=== PATIENT | female | born 1995 | race Caucasian/White ===

== ENCOUNTER 2024-07-05 09:45 | Inpatient (IN) | payer OTHER ==
[2024-07-05] MEDS ORDERED: ACETAMINOPHEN 650MG/RECT SUPP PR ONE (10:42)
[2024-07-05] MEDS ORDERED: CEFTRIAXONE 1000 MG/VIAL ONE (10:42)
[2024-07-05] MEDS ORDERED: NA CHLORIDE 0.9% 500 ML ONE (10:43)
[2024-07-05] MEDS ORDERED: NA CHLORIDE 0.9% 1,000 ML ONE (10:43)
[2024-07-05] MEDS ORDERED: AZITHROMYCIN 500 MG INJ IVPB ONE (10:43)
[2024-07-05 10:45] LABS: Absolute Lymphocytes (CBC) 0.4 K/uL (0.7-4.9); Absolute Monocytes 0.5 K/uL (0.1-1.3); Basophils % 0.2 % (0-1.3); Hemoglobin 14.8 g/dL (12.0-15.0); Lymphocytes % 6.1 % (15.3-44.8); MCHC 33.6 g/dL (32.0-36.0); MCV 95.4 fL (80-100); Monocytes % 7.3 % (3.3-12.3); Neutrophils % 86.4 % (41.7-73.7); Nucleated Red Blood Cells % 0.1 % (0-0); Platelets 192 thou/uL (152-406); RBC Red Blood Cell Count 4.61 M/uL (3.86-4.86); Red Cell Distribution Width 13.4 % (12.1-15.2)
[2024-07-05 10:59] LABS: Protime INR 1.26
[2024-07-05 11:04] LABS: Albumin 3.8 g/dL (3.4-5.0); Albumin/Globulin Ratio 0.8 (1.1-1.8); Anion Gap 5.4 mEq/L (5.0-15.0); Bilirubin Total 0.3 mg/dL (0.2-1.0); Globulin 4.5 g/dL (2.3-3.5); Potassium 3.4 mEq/L (3.5-5.1); Protein, Total 8.3 g/dL (6.4-8.2)
[2024-07-05 11:25] LABS: SARS-CoV-2 Antigen CONTROL BLUE LINE VIS/BG OK; SARS-CoV-2 Antigen Rapid Res Negative (Negative)
--- NOTE | 2024-07-05 11:30 | ER ---
Nurse's Notes [facility] Name: Zeinab Quiros Age: 29 yrs Sex: Female : 1995 Arrival Date: 07/05/2024 Time: 09:45 Bed 4 Private MD: Diagnosis: Sepsis, unspecified organism;Pneumonia, unspecified organism Presentation: 07/05 10:00 Chief complaint: Fever, decreased appetite, and cough x 4 days, diarrhea x 3 days. hb Coronavirus screen: At this time, the client does not indicate any symptoms associated with coronavirus-19. Ebola Screen: No symptoms or risks identified at this time. Initial Sepsis Screen: Does the patient meet any 2 criteria? RR > 20 per min. Temp <36.0*C (96.8*F)) or > 38.3*C (100.9*F). HR > 90 bpm. Yes Does the patient have a suspected source of infection? No. Patient's initial sepsis screen is negative. Risk Assessment: Do you want to hurt yourself or someone else? Patient reports no desire to harm self or others. Onset of symptoms was July 02, 2024. 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 N/A - , Not rg5 Historical: - Allergies: 10:17 No Known Allergies; hb - Home Meds: 10:17 Baclofen Oral [Active]; bisacodyl 5 mg Oral tablet 2 tabs 2 times per day [Active]; hb ducosate sodium [Active]; clonazepam 1 mg Oral tablet 2 times per day [Active]; trazodone 100 mg Oral tablet every day at bedtime [Active]; dantrolene 25 mg oral capsule 3 times per day [Active]; gabapentin 300 mg oral capsule 2 times per day [Active]; cetirizine 10 mg oral capsule daily [Active]; - PMHx: 10:17 Cerebral palsy; hb 11:00 constipation; muscle spasms; aa5 11:00 seizures as a child; aa5 14:30 IUD placement; aa5 - PSHx: 10:17 Bilateral Feet; hb - Immunization history:: Adult Immunizations up to date. - Infectious Disease History:: Denies. - Social history:: Smoking status: Patient denies any tobacco usage or history of. Screenin:30 [facility] ED Fall Risk Assessment (Adult) History of falling in the last 3 months, aa5 including since admission No falls in past 3 months (0 pts) Confusion or Disorientation Yes (5 pts) Intoxicated or Sedated No (0 pts) Impaired Gait Yes (1 pt) Mobility Assist Device Used Yes (1 pt) Altered Elimination Yes (1 pt) Score/Fall Risk Level 3 or more points = High Risk Oriented to surroundings, Maintained a safe environment, Educated pt \\T\\ family on fall prevention, incl call for assistance when getting out of bed, Hourly rounding (assess needs \\T\\ fall precautionary measures) done, Utilized family, sitter, or virtual financial services agent as indicated. Abuse screen: No signs of abuse noted. Nutritional screening: decreased appetite x 3 days ago . Tuberculosis screening: No symptoms or risk factors identified. Assessment: 10:30 General: Appears uncomfortable, Behavior is restless. Pain: Unable to use pain scale. aa5 Does not appear to understand pain scale. Neuro: Level of Consciousness is awake, unable to follow commands, pt is non-verbal. . Oriented to none. Cardiovascular: Heart tones S1 S2 present Capillary refill < 3 seconds in bilateral fingers Rhythm is sinus tachycardia. Respiratory: Airway is patent Respiratory effort is even, unlabored, Respiratory pattern is tachypnea Breath sounds are coarse bilaterally. Parent/caregiver reports the patient having cough x 3-4 days ago. GI: Abdomen is flat, non-distended, Bowel sounds present X 4 quads. Abd is soft X 4 quads Parent/caregiver reports the patient having diarrhea x 3 days and decreased appetite. : Brief noted. EENT: No signs and/or symptoms were reported regarding the EENT system. Derm: Skin is dry, Skin is normal, Skin temperature is hot. Musculoskeletal: Parent/caregiver report the patient having chronic muscle spasms. 11:08 Reassessment: No changes from previously documented assessment. aa5 11:52 Neuro: Level of Consciousness is awake, Oriented to none. Respiratory: Airway is patent aa5 Respiratory effort is even, unlabored, Respiratory pattern is tachypnea. Derm: Skin is dry, Skin is normal, Skin temperature is hot. 12:48 Neuro: Level of Consciousness is awake, Oriented to none. Respiratory: Airway is patent aa5 Respiratory effort is even, unlabored, Respiratory pattern is tachypnea. Derm: Skin is pink, warm \\T\\ dry. 12:50 Reassessment: Pt to CT scan . aa5 13:45 Neuro: Level of Consciousness is awake, Oriented to none. Respiratory: Airway is patent aa5 Respiratory effort is even, unlabored, Respiratory pattern is tachypnea. Derm: Skin is pink, warm \\T\\ dry. 19:10 Reassessment: Patient and/or family updated on plan of care and expected duration. Pain rg5 level reassessed. Vital Signs: 10:00 BP 126 / 81; Pulse 160; Resp 24; Temp 104.6(R); Pulse Ox 88% on R/A; Weight 39.46 kg; hb Height 5 ft. 3 in. ; Pain 4/10; 11:08 BP 124 / 86; Pulse 145; Resp 34 S; Pulse Ox 96% on 2 lpm NC; aa5 11:19 Pulse 137; ec2 11:52 Pulse 131; Resp 32 S; Temp 101.9(R); Pulse Ox 96% on 2 lpm NC; aa5 12:00 BP 112 / 88; Pulse 133; Resp 33 S; Pulse Ox 96% on 2 lpm NC; aa5 12:48 BP 128 / 93; Pulse 132; Resp 28 S; Temp 101.1(R); Pulse Ox 95% on 2 lpm NC; aa5 13:45 BP 112 / 82; Pulse 120; Resp 25 S; Pulse Ox 97% on 2 lpm NC; aa5 14:06 Pulse 123; ec2 14:28 Pulse 123; Resp 22 S; Temp 98.6(O); Pulse Ox 95% on 2 lpm NC; aa5 16:12 BP 115 / 91; Pulse 113; Resp 20 S; Pulse Ox 97% on 2 lpm NC; aa5 19:00 BP 105 / 93; Pulse 99; Resp 19; Temp 98.4; Pulse Ox 99% on R/A; Pain 0/10; rg5 10:00 Body Mass Index 15.41 (39.46 kg, 160.02 cm) hb 10:00 Pain Scale: Non-Verbal hb 19:00 Pain Scale: Adult rg5 ED Course: 09:49 Patient arrived in ED. mr 09:50 Austen Orta MD is Attending Physician. ec2 10:12 Terrence Wilson, RN is Primary Nurse. bp 10:17 Triage completed. hb 10:20 Arm band placed on. hb 10:30 Patient has correct armband on for positive identification. Placed in gown. Bed in low aa5 position. Call light in reach. Side rails up X2. Adult w/ patient. Client placed on continuous cardiac and pulse oximetry monitoring. NIBP monitoring applied. propeller engineer on. Pulse ox on. NIBP on. 10:35 Initial lab(s) drawn, by me, sent to lab. First set of blood cultures drawn by me. aa5 10:40 Inserted saline lock: 20 gauge in right antecubital area, using aseptic technique. aa5 Flushed with 10 mL NS. 10:45 EKG was attempted but very poor reading due to pt moving, pt's mother states "she never aa5 stops moving ,she even moves when she sleeps". stated to cancel EKG. 11:02 Second set of blood cultures drawn by me. aa5 11:14 Chest Single View XRAY In Process Unspecified. EDMS 11:[address] MD is Hospitalizing Provider. ec2 12:45 Straight cath inserted, using sterile technique, 14 Fr. Specimen obtained. Patient aa5 tolerated well. 13:15 Repeat lab(s) drawn. by me, sent to lab. aa5 13:16 Chest Abdomen Pelvis W Con CT In Process Unspecified. EDMS 14:30 No provider procedures requiring assistance completed. Patient admitted, IV remains in aa5 place. 19:00 Provided Education on: NEED FOR ADMIT. rg5 19:10 Resting quietly. rg5 Administered Medications: 10:42 Drug: NS 0.9% IV 1500 ml IV at 1 bolus Per protocol; 1000 mL bolus Route: IV; Rate: 1 aa5 bolus; Site: right antecubital; 12:08 Follow up: IV Status: Completed infusion; IV Intake: 1500ml aa5 11:00 Drug: Acetaminophen MO Suppository 650 mg MO once Route: MO; aa5 12:48 Follow up: Response: No adverse reaction; Temperature is decreased aa5 11:03 Drug: Rocephin IV 1 grams IV at calculated rate once; Given slow IV push per pharmacy aa5 instructions Route: IV; Rate: calculated rate; Site: right antecubital; 11:06 Follow up: Response: No adverse reaction; IV Status: Completed infusion aa5 11:08 Drug: AZITHromycin IVPB 500 mg IVPB once over 1 hrs; (mix in 250 mL NS) Route: IVPB; aa5 Infused Over: 1 hrs; Site: right antecubital; 12:08 Follow up: Response: No adverse reaction; IV Status: Completed infusion aa5 12:49 Drug: Ativan IVP 0.5 mg IVP once Route: IVP; Site: right antecubital; aa5 12:50 Follow up: Response: No adverse reaction aa5 Medication: 13:19 VIS not applicable for this client. aa5 Intake: 12:08 IV: 1500ml; Total: 1500ml. aa5 Outcome: 11:28 Decision to Hospitalize by Provider. ec2 14:30 Admitted to ER Hold. Please see [facility] for further documentation. aa5 14:30 Condition: stable aa5 14:30 Instructed on the need for admit, given to mother 19:35 Patient left the ED. rg5 Signatures: Dispatcher [employer] EDNM Ninoska Anne, Reg Reg Deonna Poon, RN RN aa5 Maria Luisa Osullivan RN RN hb Peltier, Brian, RN RN bp Austen Orta MD MD ec2 Barry De Leon, BETSY RN rg5 Corrections: (The following items were deleted from the chart) 11:19 11:00 PMHx: seizures a child; aa5 aa5 13:20 11:08 Pulse 145bpm; Resp 34bpm; Spontaneous; Pulse Ox 96% 2 lpm Nasal Cannula; aa5 aa5
--- NOTE | 2024-07-05 11:30 | EDPHYS ---
Physician Documentation [facility] Name: Zeinab Quiros Age: 29 yrs Sex: Female : 1995 Arrival Date: 07/05/2024 Time: 09:45 Bed 4 Private MD: ED Physician Austen Orta HPI: 07/05 10:18 This 29 yrs old Female presents to ER via Wheelchair with complaints of ec2 Fever, Congestion, Low O2. 10:18 History gathered from caregivers, patient arrives today due to concern for cough and ec2 congestion as well as fevers. Patient with history of cerebral palsy, limited communication.. 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 - , Not rg5 Historical: - Allergies: 10:17 No Known Allergies; hb - Home Meds: 10:17 Baclofen Oral [Active]; bisacodyl 5 mg Oral tablet 2 tabs 2 times per day [Active]; hb ducosate sodium [Active]; clonazepam 1 mg Oral tablet 2 times per day [Active]; trazodone 100 mg Oral tablet every day at bedtime [Active]; dantrolene 25 mg oral capsule 3 times per day [Active]; gabapentin 300 mg oral capsule 2 times per day [Active]; cetirizine 10 mg oral capsule daily [Active]; - PMHx: 10:17 Cerebral palsy; hb 11:00 constipation; muscle spasms; aa5 11:00 seizures as a child; aa5 14:30 IUD placement; aa5 - PSHx: 10:17 Bilateral Feet; hb - Immunization history:: Adult Immunizations up to date. - Infectious Disease History:: Denies. - Social history:: Smoking status: Patient denies any tobacco usage or history of. ROS: 10:18 Constitutional: as per hpi ec2 Exam: 10:18 Constitutional: GEN: NAD Head: atraumatic Ears: External ears are normal. CV: ec2 Tachycardia LUNGS: Scattered rhonchi, tachypnea ABD: non-distended SKIN: no evidence of rashes Vital Signs: 10:00 BP 126 / 81; Pulse 160; Resp 24; Temp 104.6(R); Pulse Ox 88% on R/A; Weight 39.46 kg; hb Height 5 ft. 3 in. ; Pain 4/10; 11:08 BP 124 / 86; Pulse 145; Resp 34 S; Pulse Ox 96% on 2 lpm NC; aa5 11:19 Pulse 137; ec2 11:52 Pulse 131; Resp 32 S; Temp 101.9(R); Pulse Ox 96% on 2 lpm NC; aa5 12:00 BP 112 / 88; Pulse 133; Resp 33 S; Pulse Ox 96% on 2 lpm NC; aa5 12:48 BP 128 / 93; Pulse 132; Resp 28 S; Temp 101.1(R); Pulse Ox 95% on 2 lpm NC; aa5 13:45 BP 112 / 82; Pulse 120; Resp 25 S; Pulse Ox 97% on 2 lpm NC; aa5 14:06 Pulse 123; ec2 14:28 Pulse 123; Resp 22 S; Temp 98.6(O); Pulse Ox 95% on 2 lpm NC; aa5 16:12 BP 115 / 91; Pulse 113; Resp 20 S; Pulse Ox 97% on 2 lpm NC; aa5 19:00 BP 105 / 93; Pulse 99; Resp 19; Temp 98.4; Pulse Ox 99% on R/A; Pain 0/10; rg5 10:00 Body Mass Index 15.41 (39.46 kg, 160.02 cm) hb 10:00 Pain Scale: Non-Verbal hb 19:00 Pain Scale: Adult rg5 MDM: 09:52 Patient medically screened. ec2 10:18 Data reviewed: vital signs. ED course: Patient arrives today for evaluation of fever ec2 and cough. Examination remarkable for objectively febrile individual was otherwise tachycardic, patient placed on oxygen with saturations at 88%. Will obtain septic workup, empirically treat for pulmonary pathology. Differential includes pneumonia, aspiration, community-acquired, viral infection, UTI. . 11:19 ED course: Patient with improving tachycardia and reassessment. Sepsis reassessment ec2 complete.. 11:28 ED course: Will admit patient for sepsis, pneumonia. Discussed case with hospitalist, nolan pending admission.. 07/05 10:18 Order name: Blood Culture Adult (2) ec2 07/05 10:18 Order name: CBC with Diff; Complete Time: 12:44 ec2 07/05 10:18 Order name: CMP; Complete Time: 11:19 ec2 07/05 10:18 Order name: Lactate w/ 2H reflex if indic.; Complete Time: 11:19 ec2 07/05 10:18 Order name: Protime (+inr); Complete Time: 11:19 ec2 07/05 10:18 Order name: Ptt, Activated; Complete Time: 11:19 ec2 07/05 10:18 Order name: SARS RAPID; Complete Time: 11:27 ec2 07/05 10:18 Order name: Influenza Screen (a \T\ B); Complete Time: 11:27 ec2 07/05 12:08 Order name: UAM; Complete Time: 13:13 la1 07/05 12:21 Order name: CBC Smear Scan; Complete Time: 12:44 EDMS 07/05 13:06 Order name: Ghost Lactate-NO COLLECT Timer; Complete Time: 13:07 EDMS 07/05 13:43 Order name: Lactate Sepsis 2 HR Follow-up; Complete Time: 13:47 EDMS 07/05 10:18 Order name: Chest Single View XRAY; Complete Time: 11:48 ec2 07/05 12:08 Order name: Chest Abdomen Pelvis W Con CT; Complete Time: 13:34 la1 07/05 10:18 Order name: EKG; Complete Time: 10:18 ec2 07/05 10:18 Order name: Cardiac monitoring; Complete Time: 10:38 ec2 07/05 10:18 Order name: EKG - Nurse/Tech; Complete Time: 10:38 ec2 07/05 10:18 Order name: IV Saline Lock - Large Bore; Complete Time: 10:38 ec2 07/05 10:18 Order name: Labs collected and sent; Complete Time: 10:38 ec2 07/05 10:18 Order name: O2 Per Protocol; Complete Time: 10:39 ec2 07/05 10:18 Order name: O2 Sat Monitoring; Complete Time: 10:39 ec2 07/05 10:18 Order name: Vital Signs; Complete Time: 10:39 ec2 07/05 12:03 Order name: Straight Cath; Complete Time: 12:52 la1 Administered Medications: 10:42 Drug: NS 0.9% IV 1500 ml IV at 1 bolus Per protocol; 1000 mL bolus Route: IV; Rate: 1 aa5 bolus; Site: right antecubital; 12:08 Follow up: IV Status: Completed infusion; IV Intake: 1500ml aa5 11:00 Drug: Acetaminophen [place] Suppository 650 mg NJ once Route: NJ; aa5 12:48 Follow up: Response: No adverse reaction; Temperature is decreased aa5 11:03 Drug: Rocephin IV 1 grams IV at calculated rate once; Given slow IV push per pharmacy aa5 instructions Route: IV; Rate: calculated rate; Site: right antecubital; 11:06 Follow up: Response: No adverse reaction; IV Status: Completed infusion aa5 11:08 Drug: AZITHromycin IVPB 500 mg IVPB once over 1 hrs; (mix in 250 mL NS) Route: IVPB; aa5 Infused Over: 1 hrs; Site: right antecubital; 12:08 Follow up: Response: No adverse reaction; IV Status: Completed infusion aa5 12:49 Drug: Ativan IVP 0.5 mg IVP once Route: IVP; Site: right antecubital; aa5 12:50 Follow up: Response: No adverse reaction aa5 Disposition Summary: 07/05/24 11:28 Hospitalization Ordered Notes: Hospitalization Status: Inpatient Admission ec2 Provider: Joseph Way ec2 Condition: Stable ec2 Problem: an acute exacerbation ec2 Symptoms: have improved ec2 Bed/Room Type: Standard ec2 Location: Telemetry/MedSurg (Inpatient)(07/05/24 18:18) ja Room Assignment: [facility](07/05/24 18:18) ja Diagnosis - Sepsis, unspecified organism ec2 - Pneumonia, unspecified organism ec2 Forms: - Medication Reconciliation Form ec2 - SBAR form ec2 - Leadership Thank You Letter ec2 Critical care time excluding procedures: 11:28 Critical care time: Bedside Care: 30 minutes, Consultation: 5 minutes. Total time: 35 ec2 minutes Signatures: Dispatcher [employer] EDMS Deonna Basurto RN RN aa5 Russel Perry FNP-Marsha MARTINP-Cla1 Maria Luisa Osullivan RN RN hb Aguilar, Jose, RN RN ja1 India Reilly, BETSY RN [id number] Austen Orta MD MD ec2 Corrections: (The following items were deleted from the chart) 10:18 10:18 BLOOD CULTURE*+BA.LAB.BRZ ordered. EDMS EDMS 10:18 10:18 CBC+H.LAB.BRZ ordered. EDMS EDMS 10:18 10:18 COMPREHENSIVE METABOLIC PANEL+C.LAB.BRZ ordered. EDMS EDMS 10:18 10:18 LACTATE+C.LAB.BRZ ordered. EDMS EDMS 10:18 10:18 PROTIME (+INR)+COAG.LAB.BRZ ordered. EDMS EDMS 10:18 10:18 PTT, ACTIVATED+COAG.LAB.BRZ ordered. EDMS EDMS 11:11 10:18 Accucheck ordered. ec2 aa5 11:19 11:00 PMHx: seizures a child; aa5 aa5 15:40 11:28 Telemetry/MedSurg (Inpatient) ec2 kb3 15:40 11:28 ec2 kb3 18:18 15:40 [facility] ER HOLD kb3 ja1 18:18 15:40 ERHOLD- kb3 ja1
--- NOTE | 2024-07-05 11:41 | RAD REPORT ---
EXAM DESCRIPTION: Dorian Single View07/05/2024 11:12 am CLINICAL HISTORY: COUGH COMPARISON: CHEST PA AND LAT 2 VIEW dated 05/21/2010 TECHNIQUE: Portable AP view of the chest. FINDINGS: Central interstitial prominence, stable. No new focal airspace opacities, within limits of suboptimal inspiratory effort which somewhat limits evaluation. No pneumothorax or effusion. The ca rdiomediastinal contours are unremarkable. Gaseous distension in the included upper abdomen, progres sive since the prior exam. IMPRESSION: Stable central interstitial prominence, may relate to central congestion/ CHF or multifo olga pneumonia. Progressive gaseous distention in the included upper abdomen.
[2024-07-05 12:21] LABS: Blood Morphology Comment NOT SEEN (NOT SEEN); Platelet Estimate ADEQ; White Blood Cell Scan OK (OK)
[2024-07-05] MEDS ORDERED: LORazepam 2 MG/ML VIAL ONE (12:36)
[2024-07-05 13:06] LABS: Specific Gravity > 1.030 (1.005-1.030); Urine Bilirubin NEGATIVE (Negative); Urine Blood Negative (Negative); Urine Clarity Turbid (Clear); Urine Color Yellow (Yellow); Urine Glucose NEGATIVE (Negative); Urine Ketones 1+ (Negative); Urine Nitrite NEGATIVE (Negative); Urine Protein 1+ (Negative); Urine Urobilinogen Normal (Normal)
[2024-07-05 13:07] LABS: Calcium Oxalate Crystals- Ur Few /HPF (None Seen); Sqamous Epithelial <5 /HPF (None Seen); Urine Bacteria None Seen /HPF (<20); Urine Culture Reflex Order NOT NEEDED; Urine Micro Reflex YN NO BILL MICROSCOPIC; Urine Mucus 4+ /HPF (None Seen); Urine RBC <5 /HPF (None Seen); Urine WBC <5 /HPF (<5)
--- NOTE | 2024-07-05 13:31 | RAD REPORT ---
EXAM DESCRIPTION: CT - Chest Abdomen Pelvis W Cont - 07/05/2024 1:14 pm CLINICAL HISTORY: Chest and abdominal pain COMPARISON: none TECHNIQUE: Computed axial tomography of the chest, abdomen and pelvis was obtained. 100 cc Isovue-30 0 was administered intravenously. Oral contrast was not requested. This limits evaluation of bowel. All CT scans are performed using dose optimization technique as appropriate and may include automated exposure control or mA/KV adjustment according to patient size. FINDINGS: Some images degraded by patient motion artifact Mild to moderate patchy alveolar opacities throughout the right lung. This likely represents pneumoni a No mediastinal or hilar lymphadenopathy. No pleural effusion. No pericardial effusion. Liver, spleen, pancreas, adrenals and left kidney unremarkable. Nonobstructing right renal calculus No evidence of diverticulitis IUD in place. No adnexal mass IMPRESSION: Mild to moderate right pneumonia
[2024-07-05] MEDS ORDERED: ONDANSETRON 4 MG/2 ML VIAL IV PRN (14:30)
[2024-07-05] MEDS: NA CHLORIDE 0.9% 1,000 ML IV SCH (14:44)
--- NOTE | 2024-07-05 15:10 | P.HP ---
Certification for Inpatient Patient admitted to: Inpatient With expected LOS: >2 Midnights Patient will require the following post-hospital care: None Practitioner: I am a practitioner with admitting privileges, knowledge of patient current condition, hospital course, and medical plan of care. Services: Services provided to patient in accordance with Admission requirements found in Title 42 Section 412.3 of the Code of Federal Regulations Patient History Date of Service: 07/05/24 Reason for admission: Severe sepsis, pneumonia History of Present Illness: 29-year-old female with history of cerebral palsy, chronic constipation presents emergency department chief complaint of fevers, congestion. Mother at bedside reports she started running fever on 07/02 and they have been rotating ibuprofen/Tylenol at home. Mother also reports she has been sounding very congested as well as not wanting to eat or drink. Family is aware that patient does aspirate occasionally, they have declined feeding tube in the past this is not what they would want for her. Patient was evaluated the emergency department found to be febrile and tachycardic, labs were significant for a normal white blood cell count lactate of 2.3 downtrending to 1.5 on repeat potassium 3.4 UA not concerning for urinary tract infection CT chest abdomen pelvis with IV contrast shows moderate right- sided pneumonia. Patient be admitted to the hospital for management of severe sepsis secondary to right-sided pneumonia/possible aspiration pneumonia. Allergies divalproex sodium [From Depakote] Allergy (Verified 02/11/13 10:33) Itching/Hives/Rash Home Medications: Baclofen 40 mg PO TID 07/05/24 Bisacodyl [Women's Laxative] 10 mg PO BID 07/05/24 Cetirizine HCl 10 mg PO DAILY 07/05/24 Dantrolene Sodium [Dantrium] 25 mg PO TID 07/05/24 Docusate Sodium 100 mg PO DAILY 07/05/24 Gabapentin 300 mg PO BID 07/05/24 Trazodone [Desyrel*] 100 mg PO BEDTIME 07/05/24 clonazePAM [Clonazepam] 1 mg PO BID 07/05/24 - Past Medical/Surgical History -: Cerebral palsy -: Chronic constipation -: IUD placement -: Surgery on her feet Psychosocial/ Personal History: Lives at home with her mother, caregiver - Family History Family History: Reviewed- Non-Contributory - Social History Alcohol use: No CD- Drugs: No Caffeine use: No Place of Residence: Home Review of Systems is unable to be obtained Physical Examination - Physical Exam General: Alert, Other (Nonverbal at baseline) HEENT: Atraumatic, PERRLA, Other (Mucous membranes dry) Neck: Supple, No LAD Respiratory: Diminished Cardiovascular: Regular rate/rhythm, Normal S1 S2 Gastrointestinal: Normal bowel sounds, No tenderness Musculoskeletal: No tenderness Integumentary: No rashes Neurological: Other (History of cerebral palsy, nonverbal) - Studies Laboratory Data (last 24 hrs) 07/05/24 07/05/24 07/05/24 10:35 10:35 10:35 WBC 7.00 Hgb 14.8 Hct 44.0 Plt Count 192 PT 14.0 H INR 1.26 APTT 34.0 Sodium 141 Potassium 3.4 L BUN 12 Creatinine 0.93 Glucose 130 H Total Bilirubin 0.3 AST 15 ALT 25 Alkaline Phosphatase 75 Microbiology Data (last 24 hrs): 07/05/24 10:39 Nasopharnyx Influenza Type A Antigen Screen - Final 07/05/24 10:39 Nasopharnyx Influenza Type B Antigen Screen - Final Assessment and Plan - Plan Assessment: Severe sepsis secondary to right-sided pneumonia, possible aspiration pneumonia Acute hypoxic respiratory failure secondary to right-sided pneumonia/severe sepsis Cerebral palsy Chronic constipation Hypokalemia Plan: Severe sepsis secondary to right-sided pneumonia, possible aspiration pneumonia Acute hypoxic respiratory failure secondary to right-sided pneumonia/severe sepsis Continue antibiotics Rocephin/Zithromax Pulmonology consultation in place Family reports they are aware the patient aspirates although they do not want a feeding tube Will consult speech therapy to see if there are any modifications that can be made to reduce the risk of aspiration further Continue pured diet as she eats at home Supplemental oxygen as needed, wean as tolerated Cerebral palsy Chronic constipation Home medications resumed Hypokalemia Protocol in place DVT PPX: Lovenox Code status: Full Discharge Plan: Home Plan to discharge in: Greater than 2 days - Advance Directives Does patient have a Living Will: No Does patient have a Durable POA for Healthcare: No - Code Status/Comfort Care Code Status Assessed: Yes (DNR) Critical Care: No Time Spent Managing Pts Care (In Minutes): 70
[2024-07-05] MEDS ORDERED: CETIRIZINE HCL 5 MG TABLET ONE (17:53)
[2024-07-05] MEDS ORDERED: clonazePAM 1 MG TAB ONE (17:53)
[2024-07-05] MEDS ORDERED: GABAPENTIN 300 MG CAP ONE (17:53)
[2024-07-05] MEDS: BISACODYL 5 MG PO SCH (18:06)
[2024-07-05] MEDS: TRAZODONE 50 MG TABLET PO SCH (18:07)
[2024-07-05] MEDS: clonazePAM 1 MG TAB PO SCH (18:07)
[2024-07-05] MEDS: BACLOFEN 10 MG TAB PO SCH (18:07)
[2024-07-05] MEDS: GABAPENTIN 300 MG CAP PO SCH (18:08)
[2024-07-05] MEDS: DANTROLENE SODIUM 25 MG PO SCH (20:49)
[2024-07-05] MEDS: ACETAMINOPHEN 650MG/RECT SUPP PR PRN (21:37)
[2024-07-06 05:53] LABS: Potassium 3.4 mEq/L (3.5-5.1)
[2024-07-06 05:58] LABS: Anion Gap 4.4 mEq/L (5.0-15.0)
[2024-07-06 06:23] LABS: Absolute Eosinophils 0.1 K/uL (0-0.5); Absolute Lymphocytes (CBC) 1.3 K/uL (0.7-4.9); Absolute Monocytes 0.6 K/uL (0.1-1.3); Basophils % 0.4 % (0-1.3); Eosinophils % 1.6 % (0-4.4); Hematocrit 34.1 % (36.0-45.0); Hemoglobin 11.7 g/dL (12.0-15.0); MCH 32.4 pg (27.0-35.0); MCHC 34.5 g/dL (32.0-36.0); MPV 9.3 fL (7.6-11.3); Platelets 151 thou/uL (152-406); RBC Red Blood Cell Count 3.62 M/uL (3.86-4.86); Red Cell Distribution Width 13.3 % (12.1-15.2)
[2024-07-06] MEDS: CEFTRIAXONE 1,000 MG in NA CHLORIDE 0.9% 50 ML IVPB SCH (09:00)
[2024-07-06] MEDS: AZITHROMYCIN IV 500 MG in NA CHLORIDE 0.9% 250 ML IVPB SCH (09:00)
[2024-07-06] MEDS: DOCUSATE NA 100 MG CAP PO SCH (09:00)
[2024-07-06] MEDS: CETIRIZINE HCL 5 MG TABLET PO SCH (09:00)
[2024-07-06] MEDS: POTASSIUM CL 40 MEQ in NA CHLORIDE 0.9% 500 ML IV SCH (09:21)
[2024-07-06] MEDS: ENOXAPARIN 40 MG/0.4 ML SQ SCH (09:22)
--- NOTE | 2024-07-06 12:19 | P.CNS ---
Date of Consult: 07/06/24 Reason for Consult: Aspiration pneumonia fever Chief Complaint: Severe sepsis, pneumonia History of Present Illness: Patient is 29 years of age with a history of cerebral palsy admitted with fever darted on Friday/ Admitted with possible aspiration In the hospital was found to have right lower lobe pneumonia At his baseline patient is able to eat he is not ambulatory Allergies divalproex sodium [From Depakote] Allergy (Verified 02/11/13 10:33) Itching/Hives/Rash Home Medications: Baclofen 40 mg PO TID 07/05/24 Bisacodyl [Women's Laxative] 10 mg PO BID 07/05/24 Cetirizine HCl 10 mg PO DAILY 07/05/24 Dantrolene Sodium [Dantrium] 25 mg PO TID 07/05/24 Docusate Sodium 100 mg PO DAILY 07/05/24 Gabapentin 300 mg PO BID 07/05/24 Trazodone [Desyrel*] 100 mg PO BEDTIME 07/05/24 clonazePAM [Clonazepam] 1 mg PO BID 07/05/24 - Past Medical/Surgical History -: Cerebral palsy -: Chronic constipation -: muscle spasms/chronic pain -: seizures as a child -: IUD placement -: Surgery on her feet Psychosocial/ Personal History: Lives at home with her mother, caregiver - Social History Alcohol use: No CD- Drugs: No Caffeine use: No Place of Residence: Home Review of Systems is unable to be obtained Physical Examination Temp Pulse Resp BP Pulse Ox 98.3 F 100 H 20 123/84 97 07/06/24 08:00 07/06/24 08:00 07/06/24 08:00 07/06/24 08:00 07/06/24 08:00 General: Alert, Unresponsive Respiratory: Clear to auscultation bilaterally, Diminished, Crackles/rales Cardiovascular: No edema, Regular rate/rhythm, Normal S1 S2 Laboratory Data (last 24 hrs) 07/05/24 10:35 WBC 7.00 Hgb 14.8 Hct 44.0 Plt Count 192 - Problems (1) Pneumonia Current Visit: Yes Status: Acute Plan: Patient is 29 years of age with a history of cerebral palsy admitted with presumed pneumonia on the right side labs chemistries reviewed no evidence of urinary tract infection mildly hypokalemic I suspect is due to use of laxative for his underlying constipation blood cultures so far no growth patient did have fever on admission continue with Zosyn. 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
[2024-07-06 13:36] VITALS: BMI 15.4
[2024-07-06] MEDS: ENSURE CLEAR 200 ML CAN PO SCH (14:00)
[2024-07-06] MEDS: PIPER TAZO 3.375 GM in NA CHLORIDE 0.9% 100 ML IV SCH (16:12)
[2024-07-06] MEDS ORDERED: PIPER TAZO 2.25 GM in NA CHLORIDE 0.9% 50 ML IV SCH (17:00)
--- NOTE | 2024-07-06 17:34 | CON ---
History Of Present Illness: This is a 29-year-old female, I was consulted to evaluate for pneumonia. The patient has significant past medical history of cerebral palsy. Provider is by the bedside. M ost of the history was obtained through medical records and provider. The patient came to the emerge ncy room with a chief complaint of fevers and congestion, opens eyes spontaneously, not in any acute cardiopulmonary distress at this time. She has been admitted to the hospital with severe sepsis seco ndary to right-sided pneumonia, possible aspiration pneumonia, cerebral palsy, chronic constipation, and hyperkalemia. She is also getting IV antibiotic Zosyn. Blood cultures are pending with no growt h in 24 hours. Past Medical History: As per HPI. Social History: Nonsmoker, nondrinker. Family History: Noncontributory. Medications: Zosyn. See MAR for other medications. Allergies: DIVALPROEX. Review of Systems: Unable to obtain. Physical Examination: General: This is a 29-year-old female, lying in bed, not in any acute cardiopulmonary distress. Vital Signs: Temperature 98, pulse 100, respirations 20, blood pressure . HEENT: Unremarkable. Neck: Supple. Lungs: Basal crackles, right more than left heart S1, S2. Regular. Abdomen: Soft, nontender. Bowel sounds present. Extremities: No edema. Laboratory Data: Shows WBC 4.9, hemoglobin 11.7, platelets are 151. Chemistry shows BUN of 8, creat inine 0.37 with lactic acid of 2.3, albumin level 3.8. Blood cultures are pending. CT chest, abdome n, and pelvis shows mild to moderate right lower lobe pneumonia. Assessment And Plan: Right lower lobe pneumonia, sepsis with elevated lactic acid. Currently, the p ileana is being treated with Zosyn for possible aspiration pneumonia. Agreed to continue antibiotic for 7 days pending culture results, anemia of chronic disease, cerebral palsy. We will follow the renee ornelas as needed. Thank you Dr. Simpson for consult. NF/MODL Voice ID: [id number] Report ID: [id number]
--- NOTE | 2024-07-06 17:56 | P.PN ---
Date of Service: 07/06/24 Subjective Non-verbal at baseline Family and day care supervisor at bedside She is awake and actively moving around ROS 10 point ROS as noted above, otherwise negative Physical Exam General: Alert, Other (Nonverbal at baseline), NAD HEENT: Atraumatic, PERRLA, Other (Mucous membranes dry) Neck: Supple, No LAD Respiratory: Diminished bilaterally Cardiovascular: NSR, Normal S1 S2, no murmur noted Gastrointestinal: Normal bowel sounds, No tenderness Musculoskeletal: No tenderness, 2+ peripheral pulses Integumentary: No rashes Neurological: Other (History of cerebral palsy, nonverbal) Vitals Reviewed Assessment: Severe sepsis secondary to right-sided pneumonia, possible aspiration pneumonia Acute hypoxic respiratory failure secondary to right-sided pneumonia/severe sepsis Lactic acidosis Cerebral palsy Chronic constipation Hypokalemia Plan: Severe sepsis secondary to right-sided pneumonia, possible aspiration pneumonia Acute hypoxic respiratory failure secondary to right-sided pneumonia/severe sepsis Lactic acidosis Lactic acid 2.3/1.5 Stopped Rocephin/Zithromax, started Zosyn 07/06 Pulmonology consultation-recommend liquid augmentin at discharge and Family reports they are aware the patient aspirates although they do not want a feeding tube speech therapy recommends regular with small bites, thin liquids, avoid straws, sitting upright 90 degrees Will continue home puree food texture Supplemental oxygen as needed, wean as tolerated Cerebral palsy Chronic constipation Continue Home medications Hypokalemia Protocol in place DVT PPX: Lovenox Code status: Full Discharge Plan: Home Plan to discharge in: Greater than 2 days
[2024-07-07 06:02] LABS: Absolute Eosinophils 0.1 K/uL (0-0.5); Absolute Monocytes 0.6 K/uL (0.1-1.3); Absolute Neutrophil 5.1 K/uL (1.8-8.0); Basophils % 0.3 % (0-1.3); Eosinophils % 1.2 % (0-4.4); Hematocrit 34.7 % (36.0-45.0); Hemoglobin 12.2 g/dL (12.0-15.0); Lymphocytes % 15.2 % (15.3-44.8); MCH 32.8 pg (27.0-35.0); MCHC 35.2 g/dL (32.0-36.0); MCV 93.1 fL (80-100); MPV 9.3 fL (7.6-11.3); Monocytes % 8.3 % (3.3-12.3); Platelets 175 thou/uL (152-406); RBC Red Blood Cell Count 3.73 M/uL (3.86-4.86); Red Cell Distribution Width 12.9 % (12.1-15.2)
[2024-07-07 06:21] LABS: Anion Gap 9.6 mEq/L (5.0-15.0); Potassium 3.6 mEq/L (3.5-5.1)
[2024-07-07] MEDS: POTASSIUM CL SA 10 MEQ TAB PO ONE (09:00)
--- NOTE | 2024-07-07 10:36 | RAD REPORT ---
EXAM DESCRIPTION: RAD - Chest Single View - 07/07/2024 10:19 am CLINICAL HISTORY: follow up aspiration pneumonia Chest pain. COMPARISON: Chest Single View dated 07/05/2024; CHEST PA AND LAT 2 VIEW dated 05/21/2010; Chest Abdomen Pelvis W Cont dated 07/05/2024 FINDINGS: Portable technique limits examination quality. Mild bilateral pulmonary opacities are again seen, more significant on the right. The findings appear essentially unchanged relative to CT dated 07/05/2024. Cardiac size is mildly prominent. No displace d fracture. IMPRESSION: Bilateral pulmonary opacities, greater on the right, appear unchanged since 07/05/2024 C T study.
--- NOTE | 2024-07-07 18:24 | P.PN ---
Date of Service: 07/07/24 Subjective Awake, eating breakfast Family reports, Zeinab is not sleeping well and requesting medication to help her sleep tonight no acute distress ROS 10 point ROS as noted above, otherwise negative Physical Exam General: Awake and Alert, Other (Nonverbal at baseline), NAD HEENT: Atraumatic, PERRLA, Other (Mucous membranes dry) Neck: Supple, No LAD Respiratory: Crackles/rales bilaterally, on 3 LNC Cardiovascular: Regular rate and rhythm, Normal S1 S2 present, no murmur noted Gastrointestinal: Normal bowel sounds, No tenderness Musculoskeletal: No tenderness, 2+ peripheral pulses Integumentary: No rashes Neurological: Other (History of cerebral palsy, nonverbal) Vitals Reviewed Assessment: Severe sepsis secondary to right-sided pneumonia, possible aspiration pneumonia Acute hypoxic respiratory failure secondary to right-sided pneumonia/severe sepsis Lactic acidosis Cerebral palsy Chronic constipation Hypokalemia Plan: Severe sepsis secondary to right-sided pneumonia, possible aspiration pneumonia Acute hypoxic respiratory failure secondary to right-sided pneumonia/severe sepsis Lactic acidosis Lactic acid 2.3/1.5 Stopped Rocephin/Zithromax 07/06 started Zosyn 07/06 Pulmonology consultation-recommend liquid augmentin at discharge and Family reports they are aware the patient aspirates although they do not want a feeding tube speech therapy recommends regular with small bites, thin liquids, avoid straws, sitting upright 90 degrees Will continue home puree food texture, as family states they will smash the food to puree form Supplemental oxygen as needed, wean as tolerated CXR 07/07/ reports "Bilateral pulmonary opacities, greater on the right, appear unchanged since 07/05/2024 CT study." Cerebral palsy Chronic constipation Continue Home medications Hypokalemia- improved Protocol in place DVT PPX: Lovenox Code status: Full Discharge Plan: Home
[2024-07-07] MEDS: DIAZEPAM 5 MG TABLET PO PRN (20:53)
[2024-07-08 06:02] LABS: Absolute Eosinophils 0.1 K/uL (0-0.5); Absolute Lymphocytes (CBC) 1.4 K/uL (0.7-4.9); Absolute Monocytes 0.6 K/uL (0.1-1.3); Absolute Neutrophil 2.2 K/uL (1.8-8.0); Basophils % 0.7 % (0-1.3); Eosinophils % 2.6 % (0-4.4); Hematocrit 33.9 % (36.0-45.0); Hemoglobin 11.6 g/dL (12.0-15.0); Lymphocytes % 32.6 % (15.3-44.8); MCH 32.3 pg (27.0-35.0); MCHC 34.3 g/dL (32.0-36.0); MCV 94.1 fL (80-100); MPV 9.2 fL (7.6-11.3); Monocytes % 13.6 % (3.3-12.3); Neutrophils % 50.5 % (41.7-73.7); Platelets 205 thou/uL (152-406); Red Cell Distribution Width 12.9 % (12.1-15.2)
[2024-07-08 06:19] LABS: Anion Gap 10.1 mEq/L (5.0-15.0); Bicarbonate 24 mEq/L (21-32); Glomerular Filtration Rate 134 ml/min (=/>90); Glucose Level 90 mg/dL (74-106); Potassium 3.1 mEq/L (3.5-5.1); Sodium Level 143 mEq/L (136-145)
[2024-07-08 06:20] LABS: BUN Blood Urea Nitrogen < 3 mg/dL (7-18)
[2024-07-08] MEDS: ALBUTEROL 2.5 MG/3 ML NEB SOL IH SCH (08:21)
[2024-07-08] MEDS: KCL 20 MEQ/100 mL IVPB 20 MEQ/100 ML BAG IV SCH (08:49)
--- NOTE | 2024-07-08 10:28 | RAD REPORT ---
[facility] CLINICAL HISTORY: Pneumonia COMPARISON: Chest Single View dated 07/07/2024; Chest Single View dated 07/05/2024; CHEST PA AND LAT 2 V IEW dated 05/21/2010 TECHNIQUE: Portable AP view of the chest. FINDINGS: Elevation of the right hemidiaphragm. Decreased inspiratory effort somewhat limits evaluat ion. Allowing for patient rotation, no residual left lung opacities. Near complete improvement of the airspace opacities in the right. No pneumothorax or effusion. The cardiomediastinal contours are unr emarkable. IMPRESSION: Improving findings, as above.
[2024-07-08] MEDS: POTASSIUM CL SA 10 MEQ TAB PO SCH (12:20)
--- NOTE | 2024-07-08 12:22 | P.PN ---
Subjective Date of Service: 07/08/24 Chief Complaint: Pneumonia Subjective: Improving (Patient is doing better mildly hypoxic has a productive cough with some hemoptysis) Review of Systems is unable to be obtained Physical Examination - Vital Signs Temperature: 98.3 F Blood Pressure: 132/87 Pulse: 67 Respirations: 16 Pulse Ox (%): 95 - Physical Exam General: Alert Respiratory: Expiratory wheezes Cardiovascular: No edema, Regular rate/rhythm, Normal S1 S2 Assessment And Plan - Current Problems (Diagnosis) (1) Pneumonia Current Visit: Yes Status: Acute Plan: Patient is 29 years of age with cerebral palsy admitted with predominantly right-sided pneumonia blood cultures are so far negative patient is afebrile normal white count patient is hypokalemic will need oral potassium supplementation we will plan to replace potassium changed to p.o. Augmentin sat is 91% plan for discharge on Augmentin sputum cultures have been ordered today will place an order for a percussion vest to see if she qualifies patient is actively wheezing avoided a bronchodilator helpful to give her a nebulizer for home use when patient starts wheezing was vital signs stable Qualifiers: Pneumonia type: aspiration pneumonia Laterality: right
--- NOTE | 2024-07-08 12:58 | P.PN ---
Subjective Date of Service: 07/08/24 Chief Complaint: Pneumonia Mother reports patient had several hours of sleep last night. Mother reports patient cough up greenish sputum, some bloodstained. No significant fever recorded over the past 24 hours. Physical Examination - Vital Signs Temperature: 98.3 F Blood Pressure: 132/87 Pulse: 67 Respirations: 16 Pulse Ox (%): 95 Assessment And Plan - Plan Physical Exam General: Awake, interactive, Nonverbal, NAD HEENT: Atraumatic, PERRLA. Moist oral mucosa. Neck: Supple, No LAD Respiratory: Bilateral wheezes, mild bibasilar Rales. Cardiovascular: Regular rate and rhythm, Normal S1 S2 present, no murmur noted Gastrointestinal: Normal bowel sounds, No tenderness Musculoskeletal: No tenderness, 2+ peripheral pulses Integumentary: No rashes Neurological: nonverbal, no focal motor deficit. Vitals Reviewed Assessment: Severe sepsis secondary to right-sided pneumonia, possible aspiration pneumonia Acute hypoxic respiratory failure secondary to right-sided pneumonia/severe sepsis Lactic acidosis Cerebral palsy Chronic constipation Hypokalemia Plan: Severe sepsis secondary to right-sided aspiration pneumonia Acute hypoxic respiratory failure secondary to right-sided pneumonia/severe sepsis Lactic acidosis Lactic acid 2.3/1.5 No significant fever over the past 48 hours. Continue IV Zosyn Sputum culture if patient can provide a sample. Patient seen by pulmonary Dr. Genao-recommend augmentin elixir on discharge. Family reports they are aware the patient aspirates although they do not want a feeding tube speech therapy recommends regular with small bites, thin liquids, avoid straws, sitting upright 90 degrees Continue dysphagia diet. Wean oxygen as tolerated Home oxygen evaluation. Cerebral palsy Chronic constipation Insomnia Continue Home medications Diazepam at bedtime as needed per mother's request. Hypokalemia- improved Potassium replacement as needed. DVT PPX: Lovenox Code status: Full Discharge Plan: Home
[2024-07-08 19:12] LABS: Anion Gap 10.3 mEq/L (5.0-15.0); Potassium 3.3 mEq/L (3.5-5.1)
[2024-07-08] MEDS: POTASSIUM 25 MEQ EFFERV TAB PO ONE (19:39)
[2024-07-08] MEDS: AMOX/K CLAV 875 MG TAB PO SCH (21:56)
[2024-07-08] MEDS: POTASSIUM CL SA 10 MEQ TAB PO ONE (21:56)
[2024-07-09 05:05] VITALS: O2SAT 93
[2024-07-09 05:08] LABS: Absolute Eosinophils 0.1 K/uL (0-0.5); Absolute Lymphocytes (CBC) 1.3 K/uL (0.7-4.9); Absolute Monocytes 0.6 K/uL (0.1-1.3); Absolute Neutrophil 2.6 K/uL (1.8-8.0); Basophils % 0.4 % (0-1.3); Eosinophils % 1.9 % (0-4.4); Hematocrit 34.8 % (36.0-45.0); MCHC 34.5 g/dL (32.0-36.0); MCV 92.8 fL (80-100); MPV 8.6 fL (7.6-11.3); Monocytes % 12.6 % (3.3-12.3); Neutrophils % 57.1 % (41.7-73.7); Platelets 226 thou/uL (152-406); RBC Red Blood Cell Count 3.75 M/uL (3.86-4.86); Red Cell Distribution Width 13.1 % (12.1-15.2)
[2024-07-09 05:26] LABS: Anion Gap 8.5 mEq/L (5.0-15.0); Magnesium 2.1 mg/dL (1.6-2.4); Potassium 3.5 mEq/L (3.5-5.1)
--- NOTE | 2024-07-09 06:54 | RAD REPORT ---
EXAM DESCRIPTION: RAD - Chest Single View - 07/09/2024 5:57 am CLINICAL HISTORY: Pneumonia COMPARISON: Chest Single View dated 07/08/2024; Chest Single View dated 07/07/2024; Chest Single View da harpal 07/05/2024; CHEST PA AND LAT 2 VIEW dated 05/21/2010; Chest Abdomen Pelvis W Cont dated 07/05/2024 FINDINGS: Lines: None. Lungs: Airspace disease in the right lower lobe is marginally improved from 07/08/2024. Slightly impr jacqueline lung volumes. Pleural: No significant pleural effusions or pneumothorax. Cardiac: The heart size is within normal limits. Mediastinum: Within normal limits. Bones: No acute fractures. Other: None IMPRESSION: Lung volumes and airspace disease at the right lung base marginally improved compared wi yesterday.
[2024-07-09] MEDS: POTASSIUM CL SA 10 MEQ TAB PO ONE (08:44)
[2024-07-09 10:18] VITALS: BP 124/78; TEMP 98.5
--- NOTE | 2024-07-09 10:32 | P.DS ---
Admission Date: 07/05/24 Discharge Date: 07/09/24 Disposition: ROUTINE DISCHARGE Discharge Condition: FAIR Reason for Admission: Pneumonia Brief History of Present Illness: 29-year-old female with history of cerebral palsy, chronic constipation was brought to the emergency department chief complaint of fevers, congestion. Mother at bedside reports she started running fever on 07/02 and they were managing the fever with ibuprofen/Tylenol at home. Mother also reported patient sounded very congested as well as not wanting to eat or drink. Family is aware that patient does aspirate with food and drink but they have declined feeding tube. Patient was evaluated the emergency department found to be febrile and tachycardic. Labs were significant for lactate of 2.3. UA not concerning for urinary tract infection. CT chest abdomen pelvis with IV contrast shows moderate right-sided pneumonia. Patient was admitted to the hospital for management of severe sepsis secondary to right-sided pneumonia/possible aspiration pneumonia. Hospital Course: Patient was admitted to the medical floor and the following medical problems addressed: Severe sepsis secondary to right-sided aspiration pneumonia Acute hypoxic respiratory failure secondary to right-sided pneumonia/severe sepsis Lactic acidosis Lactic acid 2.3/1.5 Patient treated with IV Zosyn Patient elected defervescence Patient seen by pulmonary Dr. Genao-recommend augmentin elixir on discharge. Family reports they are aware the patient aspirates but they do not want a feeding tube speech therapy recommended regular diet,small bites, thin liquids, avoid straws, sitting upright 90 degrees Patient initially was requiring oxygen but this was weaned off. She has good oxygen saturation on room air. Overall patient condition is clinically improved. She is deemed stable for discharge. Cerebral palsy Chronic constipation Insomnia Continued Home medications Patient was given diazepam at bedtime as needed per mother's request. Hypokalemia- improved Potassium replacement given. Vital Signs/Physical Exam: Temp Pulse Resp BP Pulse Ox 98.5 F 97 H 18 124/78 95 07/09/24 08:00 07/09/24 08:00 07/09/24 08:00 07/09/24 08:00 07/09/24 08:00 General: In no apparent distress, Other (Awake) HEENT: Mucous membr. moist/pink, Sclerae nonicteric Neck: JVD not distended Respiratory: Clear to auscultation bilaterally, Normal air movement Cardiovascular: Regular rate/rhythm, Normal S1 S2 Gastrointestinal: Normal bowel sounds, Soft and benign, Non-distended, No tenderness Musculoskeletal: No swelling Integumentary: No rashes, No cyanosis Neurological: Normal strength at 5/5 x4 extr Laboratory Data at Discharge: WBC 4.50 thou/uL (4.3-10.9) 07/09/24 04:51 Hgb 12.0 g/dL (12.0-15.0) 07/09/24 04:51 Hct 34.8 % (36.0-45.0) L 07/09/24 04:51 Plt Count 226 thou/uL (152-406) 07/09/24 04:51 PT 14.0 SECONDS (9.4-12.5) H 07/05/24 10:35 INR 1.26 07/05/24 10:35 APTT 34.0 SECONDS (24.3-36.9) 07/05/24 10:35 Sodium 143 mEq/L (136-145) 07/09/24 04:51 Potassium 3.5 mEq/L (3.5-5.1) 07/09/24 04:51 BUN 3 mg/dL (7-18) L 07/09/24 04:51 Creatinine 0.41 mg/dL (0.55-1.02) L 07/09/24 04:51 Glucose 94 mg/dL (74-106) 07/09/24 04:51 Magnesium 2.1 mg/dL (1.6-2.4) 07/09/24 04:51 Total Bilirubin 0.3 mg/dL (0.2-1.0) 07/05/24 10:35 AST 15 U/L (15-37) 07/05/24 10:35 ALT 25 U/L (13-56) 07/05/24 10:35 Alkaline Phosphatase 75 U/L (45-117) 07/05/24 10:35 Home Medications: Baclofen 40 mg PO TID 07/05/24 Bisacodyl [Women's Laxative] 10 mg PO BID 07/05/24 Cetirizine HCl 10 mg PO DAILY 07/05/24 Dantrolene Sodium [Dantrium] 25 mg PO TID 07/05/24 Docusate Sodium 100 mg PO DAILY 07/05/24 Gabapentin 300 mg PO BID 07/05/24 Trazodone [Desyrel*] 100 mg PO BEDTIME 07/05/24 clonazePAM [Clonazepam] 1 mg PO BID 07/05/24 Albuterol Neb [Proventil 0.083% Neb Soln] 2.5 mg IH [id number] PRN #120 amp 07/09 Amox/Clavulanate [Augmentin 875-125 Tab*] 875 mg PO BID #14 tab 07/09/24 Ensure Clear 237 ml PO TID #30 can 07/09/24 New Medications: Albuterol Neb [Proventil 0.083% Neb Soln] 2.5 mg IH [id number] PRN #120 amp PRN Reason: Wheezing Amox/Clavulanate [Augmentin 875-125 Tab*] 875 mg PO BID #14 tab Ensure Clear 237 ml PO TID #30 can Diet: Regular (Mash, pureed) Activity: Fall precautions Followup: OOTOOT [Primary Care Provider] - 1 Week Time spent managing pt's care (in minutes): 38
== END 2024-07-09 11:38 | disposition home or self-care (01) | DRG 871 ==
LOC: ER 09:45 → ERHOLD 13:35 → 2ND 18:41
PROVIDERS: ADMIT Hospitalist; ATTEND Internal Medicine
DX: A41.9 Sepsis, unspecified organism (principal); J69.0 Pneumonitis due to inhalation of food and vomit; J96.01 Acute respiratory failure with hypoxia; E87.20 Acidosis, unspecified; G80.9 Cerebral palsy, unspecified; R65.20 Severe sepsis without septic shock; G47.00 Insomnia, unspecified; E87.6 Hypokalemia; K59.09 Other constipation; T47.4X5A Adverse effect of other laxatives, initial encounter; Z66 Do not resuscitate; Z88.8 Allergy status to other drugs, medicaments and biological substances; Z11.52 Encounter for screening for COVID-19; Z79.899 Other long term (current) drug therapy
CPT/HCPCS: 36415; 51702; 71045; 71260; 74177; 80048; 80053; 81001; 83605; 83735; 85025; 85610; 85730; 87040; 87804; 87811; 92610; 94640; 96365; 96375; 99285; J0696; J1650; J2543; J3480; J7030; J7040; J7050; J7613; Q9967